=== PATIENT | male | born 1960 | race Caucasian/White ===

== ENCOUNTER → 2016-06-08 | Outpatient (CLI) | payer OTHER ==
[2016-01-13 06:00] VITALS: BP 138/85
[~2016-06-08] MED LIST: ACET500T68 PO; ASPI-252 PO; ASPI325T4 PO; CELE200C PO; IBUP-1027 PO; MULT-460 PO; NALT1TAB PO; NAPR220T70 PO; NAPR500T8 PO; OMEG-32 PO; OMEP40CA5 PO; OXYC-323 PO; PRED50TA PO
[2016-06-08 18:58] LABS: BF CLARITY CLOUDY; BF COLOR YELLOW
== END | disposition home or self-care (01) ==
LOC: SPEC 16:55
PROVIDERS: ATTEND Orthopaedic Surgery
DX: M25.462 Effusion, left knee (principal)
CPT/HCPCS: 87071; 87075; 87102; 87116; 87205; 89050

== ENCOUNTER → 2019-12-17 | Outpatient (CLI) | payer OTHER ==
[2016-01-13 06:00] VITALS: BP 138/85
[~2019-12-17] MED LIST changes: -ASPI325T4 PO; +ASPI325T8 PO; +OMEP40CA45 PO; -OMEP40CA5 PO; -OXYC-323 PO; +OXYC1TAB15 PO
--- NOTE | 2019-12-18 08:26 | CARD ---
MR#: [id number] Date of Study: 12/17/2019 Ordering Physician: JANELLE FELDMAN, Referring Physician: JANELLE FELDMAN, Tech: Gila Lofton APPROVED REPORT EXAM: Two-dimensional and M-mode echocardiogram with Doppler and color Doppler. Other Information Quality : AverageHR: 109bpm INDICATION Atrial Fibrillation 2D DIMENSIONS RVDd3.5 (2.9-3.5cm)Left Atrium(2D)4.0 (1.6-4.0cm) IVSd1.5 (0.7-1.1cm)Aortic Root(2D)3.4 (2.0-3.7cm) LVDd4.5 (3.9-5.9cm)LVOT Diameter2.2 (1.8-2.4cm) PWd1.1 (0.7-1.1cm)LVDs3.0 (2.5-4.0cm) FS (%) 32.5 %SV56.6 ml LVEF(%)61.0 (>50%) Aortic Valve AoV Peak Kishore.147.3cm/sAoV VTI21.5cm AO Peak GR.8.7mmHgLVOT Peak Kishore.147.2cm/s LVOT VTI 24.59cmAO Mean GR.5mmHg TRISATN (VMAX)2.94vh1BUF (VTI)4.21cm2 Mitral Valve MV E Nwixcfvm01.1cm/s TDI E/Lateral E'6.8E/Medial E'8.8 Pulmonary Valve PV Peak Mlepoemy02.1cm/sPV Peak Grad.4mmHg Tricuspid Valve TR P. Uigfapwo927zt/sRAP MUTRHZZV5dcSn TR Peak Gr.80ucQjXJIF68dgSu LEFT VENTRICLE The left ventricle is normal size. There is mild to moderate concentric left ventricular hypertrophy. The left ventricular systolic function is normal and the ejection fraction is within normal range. T he Ejection Fraction is 55-60%. There is normal LV segmental wall motion. Tissue Doppler imaging reve als moderate left ventricular diastolic dysfunction. RIGHT VENTRICLE The right ventricle is normal size. There is normal right ventricular wall thickness. The right ventr icular systolic function is normal. ATRIA The left atrium is mildly dilated. The right atrium is mildly dilated. The interatrial septum is inta ct with no evidence for an atrial septal defect or patent foramen ovale as noted on 2-D or Doppler im aging. AORTIC VALVE The aortic valve is thickened but opens well. Doppler and Color Flow revealed no significant aortic r egurgitation. There is no significant aortic valvular stenosis. Calculated aortic valve area is 4.71 cm2 with maximum pressure gradient of 11 mmHg and mean pressure gradient of 5 mmHg. MITRAL VALVE The mitral valve is normal in structure and function. There is no evidence of mitral valve prolapse. There is no mitral valve stenosis. Doppler and Color-flow revealed trace mitral regurgitation. TRICUSPID VALVE The tricuspid valve is normal in structure and function. Doppler and Color Flow revealed trace tricus pid regurgitation with an estimated PAP of 38 mmHg. There is no tricuspid valve stenosis. PULMONIC VALVE The pulmonic valve is not well visualized. Doppler and Color Flow revealed trace pulmonic valvular re gurgitation. There is no pulmonic valvular stenosis. GREAT VESSELS The aortic root is normal in size. The ascending aorta is normal in size. PERICARDIAL EFFUSION There is no evidence of significant pericardial effusion. Critical Notification Critical Value: No <Conclusion> The left ventricular systolic function is normal and the ejection fraction is within normal range. Th e Ejection Fraction is 55-60%. There is normal LV segmental wall motion. Signed by : Pepe Evangelista, Electronically Approved : 12/18/2019 08:25:42
--- NOTE | 2019-12-18 08:28 | RAD ---
MR#: [id number] Date of Study: 12/17/2019 Ordering Physician: JANELLE FELDMAN, Referring Physician: AMRIT DAMON Tech: GORDY Renee, ARRT (R) (N) APPROVED REPORT Test Type: Exercise Stress Nurse/Tech: Master Toscano RN Test Indications: Atrial fibrillation Cardiac History: a-fib Medications: See Electronic Medical Record Medical History: See Electronic Medical Record Resting ECG: atrail fibrillation Resting Heart Rate: 92 bpm Resting Blood Pressure: 138/91mmHg Pretest Chest Pain: No chest pain Nurse/Tech Notes lungs CTA Consent: The procedure was explained to the patient in lay terms. Informed consent was witnessed. Torres eout was entered into [facility]. History and Stress Test performed by RT Sweetie (Johnna) (N) Stress Symptoms Dyspnea POST EXERCISE Reason for Termination: Reached target heart rate Target HR: 136 Exercise duration: 6:00 min:sec, 2 Stage Exercise capacity: 7METs Max Blood Pressure: 164/79mmHg Blood Pressure response to exercise: Normal blood pressure response during stress. Heart Rate response to exercise: normal response Chest Pain: No. Arrhythmia: Yes. PVC ST Change: No. INTERPRETATION Stress EKG Conclusion: No evidence of stress induced EKG changes. Baseline afib. Imaging Protocol IMAGE PROTOCOL: Rest Tc-99m/stress Tc-99m 1 day Rest: Stress: Viability: Radiopharm.Tc99m ScvspnofwVv23h Sestamibi Zjxd38jNb 33mCi Img Date 12/17/2019 12/17/2019 Inj-Img Nuzx76sgm. 45min. Rest Admin Site:IV - Left AntecubitalAdministrator:OMID Law Stress Admin Site: IV - Left AntecubitalAdministrator: RT Sweetie (Johnna)(N) STRESS DATA End Diast. Vol.71.0mlLVEDV index BSA32.0ml End Syst. Vol.14.0mlLVESV index BSA6.0ml Myocardial Guzb360.0gEject. Wcyxkszh57.0% Stress Scores Regional WT0.00Summed WT7.00 Regional WM0.00Summed WM0.00 The rest and stress images show normal perfusion, normal contraction and thickening. LV Perf. Quant 17 Seg. SSS0.00 17 Seg. SRS1.00 17 Seg. SDS0.00 Stress Defect Extent (% LAD)0.00Rest Defect Extent (% LAD)0.00Rev. Defect Extent (% LAD)0.00 Stress Defect Extent (% LCX) 0.00Rest Defect Extent (% LCX)0.00Rev. Defect Extent (% LCX)0.00 Stress Defect Extent (% RCA)0.00Rest Defect Extent (% RCA)0.00Rev. Defect Extent (% RCA)0.00 Stress Defect Extent (% ANDREW)0.00Rest Defect Extent (% ANDREW)1.30Rev. Defect Extent (% ANDREW)0.00 Other Information Quality:Average Risk Assessment: Low Risk Conclusion 1. No evidence of EKG changes with stress testing. 2. Normal perfusion at stress/rest. 3. Low risk study. 4. EF > 60%. Signed by : Pepe Evangelista, Electronically Approved : 12/18/2019 08:27:45
== END ==
LOC: NM 09:29
PROVIDERS: ATTEND Internal Medicine Cardiovascular Disease
DX: I48.91 Unspecified atrial fibrillation (principal); I51.7 Cardiomegaly
CPT/HCPCS: 78452; 93017; 93306; A9500

== ENCOUNTER → 2020-01-23 | Outpatient (CLI) | payer OTHER ==
[2016-01-13 06:00] VITALS: BP 138/85
[~2020-01-23] MED LIST changes: +APIX5TAB PO; +METO25TA4 PO; +MULT-121 PO; +SILD50TA PO
== END ==
LOC: LAB 15:12
PROVIDERS: ATTEND Internal Medicine Cardiovascular Disease
DX: Z01.812 Encounter for preprocedural laboratory examination (principal); Z20.828 Contact with and (suspected) exposure to other viral communicable diseases; I48.91 Unspecified atrial fibrillation
CPT/HCPCS: U0003

== ENCOUNTER 2020-01-26 11:25 | Day surgery (SDC) | payer OTHER ==
[~2020-01-26 11:25] MED LIST changes: +HYDROmorphone 2 MG/ML VIAL IV PRN; +IV RINGERS,LACTATED 1000ML 1,000 ML IV SCH; +LIDOCAINE 1% PF 2 ML VIAL. ID PRN; +MORPHINE SULFATE 2 MG/ML VIAL. IV PRN; +ONDANSETRON PF 4 MG/2 ML VIAL. IV PRN; +PROCHLORPERAZINE 10 MG/2 ML VIAL. IV PRN; +fentaNYL PF VIAL 100 MCG/2 ML VIAL IV PRN
[2020-01-26 12:14] LABS: HEMOGLOBIN 17.3 g/dL (13.0-17.5); RED BLOOD COUNT 5.33 x10^6/uL (4.30-5.70); RED CELL DISTRIBUTION WIDTH 13.9 % (11.5-14.5); WHITE BLOOD COUNT 8.6 x10^3/uL (4.0-11.0)
--- NOTE | 2020-01-26 12:19 | EKG ---
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
[2020-01-26 12:25] LABS: CALCIUM 9.1 mg/dL (8.5-10.1); CREATININE 1.1 mg/dL (0.7-1.3); GFR 68.5; POTASSIUM 4.2 mmol/L (3.5-5.1)
[2020-01-26 12:26] LABS: PROTHROMBIN TIME PATIENT 13.8 SEC (11.7-14.0)
[2020-01-26] MEDS ORDERED: PROPOFOL 10 MG/ML (20ML) VIAL. IV ONE (12:35)
--- NOTE | 2020-01-26 13:12 | EKG ---
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
[2020-01-26 13:40] VITALS: BP 137/85
--- NOTE | 2020-01-26 14:18 | PDOC4 ---
Procedure Note Procedure: External cardioversion Indications: Atrial fibrillation Complications: None Procedural Details: An informed consent was obtained from patient. Anasthesiology team administered intravenous propofol for deep sedation. Patien was then given 200 J of synchronized biphasic DC current with conversion of rhythm from atrial fibrillation to sinus rhythm. He was hemodynamically stable and without any neurologic deficits at end of procedure. He tolerated the procedure well. There were no immediate complications. Conclusions: Successful external cardioversion of atrial fibrillation to sinus rhythm. JANELLE FELDMAN MD Jan 26, 2020 14:18
== END 2020-01-26 14:09 | disposition home or self-care (01) ==
LOC: SURG 11:25
PROVIDERS: ATTEND Internal Medicine Cardiovascular Disease
DX: I48.91 Unspecified atrial fibrillation (principal); I10 Essential (primary) hypertension; K21.9 Gastro-esophageal reflux disease without esophagitis; M17.12 Unilateral primary osteoarthritis, left knee; Z90.49 Acquired absence of other specified parts of digestive tract; Z79.899 Other long term (current) drug therapy; Z96.652 Presence of left artificial knee joint; Z98.890 Other specified postprocedural states; Z87.442 Personal history of urinary calculi; Z72.89 Other problems related to lifestyle; Z82.49 Family history of ischemic heart disease and other diseases of the circulatory system
CPT/HCPCS: 36415; 80048; 85027; 85610; 92960; 93005; J2704

== ENCOUNTER → 2020-03-19 | Outpatient (CLI) | payer OTHER ==
[~2020-03-19] MED LIST changes: +DRON400T PO; -HYDROmorphone 2 MG/ML VIAL IV PRN; -IV RINGERS,LACTATED 1000ML 1,000 ML IV SCH; -LIDOCAINE 1% PF 2 ML VIAL. ID PRN; -MORPHINE SULFATE 2 MG/ML VIAL. IV PRN; -ONDANSETRON PF 4 MG/2 ML VIAL. IV PRN; -PROCHLORPERAZINE 10 MG/2 ML VIAL. IV PRN; -fentaNYL PF VIAL 100 MCG/2 ML VIAL IV PRN
== END ==
LOC: LAB 14:20
PROVIDERS: ATTEND Internal Medicine Cardiovascular Disease
DX: Z01.812 Encounter for preprocedural laboratory examination (principal); I48.91 Unspecified atrial fibrillation; Z20.822 Contact with and (suspected) exposure to COVID-19
CPT/HCPCS: U0003

== ENCOUNTER 2020-03-23 07:20 | Day surgery (SDC) | payer OTHER ==
[~2020-03-23 07:20] MED LIST changes: +HYDROmorphone 2 MG/ML VIAL IVP PRN; +IV RINGERS,LACTATED 1000ML 1,000 ML IV SCH; +MORPHINE SULFATE 2 MG/ML VIAL. IVP PRN; +PROCHLORPERAZINE 10 MG/2 ML VIAL. IVP PRN; +fentaNYL PF VIAL 100 MCG/2 ML VIAL IVP PRN
[2020-03-23 08:26] LABS: CALCIUM 9.1 mg/dL (8.5-10.1); CREATININE 1.2 mg/dL (0.7-1.3); POTASSIUM 4.3 mmol/L (3.5-5.1)
[2020-03-23 08:29] LABS: BASO # 0.1 x10^3/uL (0.0-0.2); BASO % 1 % (0-3); EOS # 0.1 x10^3/uL (0.0-0.7); EOS % 2 % (0-3); HEMOGLOBIN 17.4 g/dL (13.0-17.5); LYMPH # 1.6 x10^3/uL (1.0-4.8); LYMPH % 26 % (24-48); MEAN CORPUSCULAR HEMOGLOBIN 32 pg (25-35); MEAN CORPUSCULAR HGB CONC 34 g/dL (31-37); MEAN CORPUSCULAR VOLUME 94 fL (79-100); MONO # 0.9 x10^3/uL (0.0-1.1); MONO % 14 % (0-9); NEUT # 3.7 x10^3/uL (1.8-7.7); NEUT % 57 % (31-73); PLATELET COUNT 216 x10^3/uL (140-400); RED CELL DISTRIBUTION WIDTH 13.8 % (11.5-14.5); WHITE BLOOD COUNT 6.4 x10^3/uL (4.0-11.0)
[2020-03-23 09:03] LABS: PROTHROMBIN TIME PATIENT 13.9 SEC (11.7-14.0)
[2020-03-23] MEDS ORDERED: LIDOCAINE 2% PF 5 ML VIAL. ONE (09:03)
[2020-03-23] MEDS ORDERED: PROPOFOL 10 MG/ML (20ML) VIAL. IV ONE (09:03)
--- NOTE | 2020-03-23 15:47 | EKG ---
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
--- NOTE | 2020-03-29 19:44 | PDOC4 ---
Procedure Note Procedure: External cardioversion Indications: Atrial fibrillation Complications: None Procedural Details: An informed consent was obtained from patient. Anasthesiology team administered IV propofol for deep sedation. Patient was then given 200 J of biphasic synchronized DC shock therapy with successful conversion of patient's rhythm from atrial fibrillation to normal sinus rhythm. Patient was hemodynamically stable and without any neurologic deficits at the end of procedure. He tolerated the procedure well. There were no immediate complications. Conclusions: Successful external cardioversion of atrial fibrillation to normal sinus rhythm JANELLE FELDMAN MD Mar 29, 2020 19:44
== END 2020-03-23 10:48 | disposition home or self-care (01) ==
LOC: SURG 07:20
PROVIDERS: ATTEND Internal Medicine Cardiovascular Disease
DX: I48.91 Unspecified atrial fibrillation (principal); I10 Essential (primary) hypertension; G47.30 Sleep apnea, unspecified; K21.9 Gastro-esophageal reflux disease without esophagitis; M19.90 Unspecified osteoarthritis, unspecified site; Z79.899 Other long term (current) drug therapy; Z98.890 Other specified postprocedural states; Z72.89 Other problems related to lifestyle; Z82.49 Family history of ischemic heart disease and other diseases of the circulatory system
CPT/HCPCS: 36415; 80048; 85025; 85610; 92960; 93005; J2704

== ENCOUNTER → 2021-01-27 | Outpatient (CLI) | payer OTHER ==
[~2021-01-27] MED LIST changes: -DRON400T PO; +DRON400T6 PO; -HYDROmorphone 2 MG/ML VIAL IVP PRN; -IV RINGERS,LACTATED 1000ML 1,000 ML IV SCH; -MORPHINE SULFATE 2 MG/ML VIAL. IVP PRN; -OMEP40CA45 PO; +OMEP40CA7 PO; -PROCHLORPERAZINE 10 MG/2 ML VIAL. IVP PRN; -fentaNYL PF VIAL 100 MCG/2 ML VIAL IVP PRN
--- NOTE | 2021-01-27 15:03 | CARD ---
MR#: [id number] Date of Study: 01/27/2021 Ordering Physician: JANELLE FELDMAN, Referring Physician: JANELLE FELDMAN Tech: Colleen Alexandre [facility] APPROVED REPORT EXAM: Two-dimensional and M-mode echocardiogram with Doppler and color Doppler. Other Information Quality : AverageHR: 72bpm Rhythm : NSR INDICATION Atrial Fibrillation 2D DIMENSIONS RVDd3.8 (2.9-3.5cm)Left Atrium(2D)4.2 (1.6-4.0cm) IVSd2.1 (0.7-1.1cm)Aortic Root(2D)3.6 (2.0-3.7cm) LVDd4.1 (3.9-5.9cm)LVOT Diameter2.5 (1.8-2.4cm) PWd2.0 (0.7-1.1cm)LVDs2.9 (2.5-4.0cm) FS (%) 30.1 %SV42.9 ml Aortic Valve AoV Peak Kishore.154.1cm/sAoV VTI30.7cm AO Peak GR.9.5mmHgLVOT Peak Kishore.155.5cm/s AO Mean GR.5mmHgAVA (VMAX)4.88cm2 Mitral Valve MV E Uiteluah50.0cm/sMV DECEL JBOD083nv MV A Xvfyibla79.1cm/sE/A Ratio1.2 Pulmonary Valve PV Peak Exbexixu342.4cm/s Tricuspid Valve TR P. Yrhpkods608rj/sTR Peak Gr.29mmHg LEFT VENTRICLE The left ventricle is normal size. There is moderate concentric left ventricular hypertrophy. The lef t ventricular systolic function is normal and the ejection fraction is within normal range. LV eject ion fraction of 60 to 65%. There is normal LV segmental wall motion. RIGHT VENTRICLE The right ventricle is normal size. There is normal right ventricular wall thickness. The right ventr icular systolic function is normal. ATRIA The left atrium size is normal. The right atrium size is normal. The interatrial septum is intact wit h no evidence for an atrial septal defect or patent foramen ovale as noted on 2-D or Doppler imaging. AORTIC VALVE The aortic valve is normal in structure and function. Doppler and Color Flow revealed no significant aortic regurgitation. There is no significant aortic valvular stenosis. MITRAL VALVE The mitral valve is normal in structure and function. There is no evidence of mitral valve prolapse. There is no mitral valve stenosis. Doppler and Color-flow revealed trace mitral regurgitation. TRICUSPID VALVE The tricuspid valve is normal in structure and function. Doppler and Color Flow revealed trace tricus pid regurgitation. Estimated PAP 32 mmHg. There is no tricuspid valve stenosis. PULMONIC VALVE The pulmonary valve is normal in structure and function. Doppler and Color Flow revealed no pulmonic valvular regurgitation. GREAT VESSELS The aortic root is normal in size. The ascending aorta is normal in size. The IVC is normal in size a nd collapses >50% with inspiration. PERICARDIAL EFFUSION There is no evidence of significant pericardial effusion. Critical Notification Critical Value: No <Conclusion> The left ventricle is normal size. The left ventricular systolic function is normal and the ejection fraction is within normal range. LV ejection fraction of 60 to 65%. There is moderate concentric left ventricular hypertrophy. Doppler and Color Flow revealed no significant aortic regurgitation. There is no significant aortic valvular stenosis. Doppler and Color-flow revealed trace mitral regurgitation. Doppler and Color Flow revealed trace tricuspid regurgitation. Estimated PAP 32 mmHg. Signed by : Meño Francis MD Electronically Approved : 01/27/2021 15:02:41
== END ==
LOC: ECHO 13:50
PROVIDERS: ATTEND Internal Medicine Cardiovascular Disease
DX: I51.7 Cardiomegaly (principal); I48.91 Unspecified atrial fibrillation
CPT/HCPCS: 93306